=== PATIENT | male | born 1960 | race Two or more races ===

== ENCOUNTER 2018-01-06 11:14 | Day surgery (SDC) | payer OTHER ==
[2018-01-06] MEDS ORDERED: LIDOCAINE 2% (SDV) 5 ML INJ (13:53)
[2018-01-06] MEDS ORDERED: PROPOFOL 60 ML (13:53)
== END 2018-01-06 14:38 | disposition home or self-care (01) ==
LOC: GIL 11:14
DX: Z12.11 Encounter for screening for malignant neoplasm of colon (principal); K29.50 Unspecified chronic gastritis without bleeding; K64.8 Other hemorrhoids; K20.9 Esophagitis, unspecified; D64.9 Anemia, unspecified; J44.9 Chronic obstructive pulmonary disease, unspecified
CPT/HCPCS: 43239; 88305; 88312; 88313